=== PATIENT | female | born 1930 | race Two or more races ===

== ENCOUNTER 2019-10-07 11:03 | Outpatient (CLI) | payer OTHER | END 2019-10-07 11:16 | disposition home or self-care (01) | LOC: SONOGRAMA 11:03 | DX: M25.532 Pain in left wrist (principal) ==

== ENCOUNTER 2020-12-28 08:20 | Outpatient (CLI) | payer OTHER | END 2020-12-28 12:32 | disposition home or self-care (01) | LOC: SONOGRAMA 08:20 → MAMO-SONO 08:45 → SONOGRAMA 12:32 | PROVIDERS: ATTEND Physical Medicine & Rehabilitation | DX: M19.09 Primary osteoarthritis, other specified site (principal); G56.03 Carpal tunnel syndrome, bilateral upper limbs ==